=== PATIENT | female | born 1965 | race African-American/Black ===

== ENCOUNTER 2016-10-28 10:10 | Outpatient (CLI) | payer OTHER ==
--- NOTE | 2016-10-29 12:05 | Diagnostic Imaging Report ---
Indications: Chronic left shoulder pain Technique: Sagittal oblique T1 weighted fast spin echo, sagittal oblique and coronal oblique T2 weighted fat saturated fast spin echo, sagittal oblique, coronal oblique and axial proton density weighted fat saturated fast spin echo sequences of the left shoulder were performed without intravenous or intra-articular gadolinium administration. Findings: Comparison: 09/25/2010 Supraspinatus and infraspinatus tendons remain diffusely thickened and heterogeneously increased in signal. Again, no discrete linear fluid signal change identified to suggest high-grade tear. No tendon retraction or muscular atrophy. No significant fluid in subacromial/subdeltoid bursa. Teres minor, subscapularis muscles and tendons are intact and unremarkable in appearance. Acromioclavicular joint remains unremarkable in appearance. Acromion process demonstrates neutral angulation and type I configuration. Subacromial space remains normal in width. Glenohumeral joint remains intact without significant effusion. Glenoid labrum remains grossly intact. Biceps tendon remains normally located within the bicipital groove, intact and normal in signal to its glenoid insertion site. Multiple circumscribed fluid signal foci have developed within the superior lateral aspect of the humeral head and region of previous marrow edema. IMPRESSION: Findings compatible with a persistent supraspinatus and infraspinatus tendinopathy. Superimposed low-grade tear not excludable. No evidence of high-grade tear, unchanged. Formation of multiple humeral head cysts in region of previous marrow edema, there likely degenerative in nature. Remainder of exam unremarkable, unchanged
== END 2016-10-28 12:10 | disposition home or self-care (01) ==
LOC: MRI 10:10
DX: M75.92 Shoulder lesion, unspecified, left shoulder (principal)

== ENCOUNTER 2016-11-05 18:20 | Emergency (ER) | payer BC, OTHER ==
[~2016-11-05] VITALS: Ht 165.1 cm; Wt 116.1 kg
--- NOTE | 2016-11-05 18:45 | Emergency Room Report ---
History of Present Illness General Chief Complaint: Pain Present Illness HPI 51-year-old female presents to the emergency department complaining of right posterior calf pain, left medial knee pain, right forearm pain x2 months. Patient states that the right calf pain has been exacerbated over the last 3 days. Patient denies appreciable trauma or fall. Patient denies swelling, erythema or open lesions. Patient states that for arm pain began after holding wheelchair from rolling downhill 2 months ago. Patient states she has a history of DVT in the past, and has IVC filter in place. Pt. also reports hx of PE in 2009 Patient denies taking blood thinning medications, recent travel, hormone replacement. She states she has taken Motrin multiple times without relief. She states that finis appointment she could get with her PCP was in a month. Pt. reports hx of Left knee replacement in 2014. Pt. is right hand dominant. Denies nausea, vomiting, fevers, chills. Denies Cough or SOB. Denies numbness tingling or loss of sensation or gross motor movements of the extremities, incontinence of bowel or bladder. Denies CP, Palpitations, LOC, AMS , dizziness, Changes in Vision, Sensation, paresthesias, or a sudden severe headache. Allergies: Coded Allergies: SULFUR DIOXIDE (Verified Allergy, Unknown, MAKE ME ITCH, 10/18/14) Patient History Past Medical History: see triage record Past Surgical History: none Pertinent Family History: none Now: No Reviewed Nursing Documentation: PMH: Agreed, PSxH: Agreed Nursing Documentation-PMH Hx Cardiac Problems: No - DVTS PE Review of Systems All Other Systems: negative except mentioned in HPI Physical Exam Vital Signs Date Time Temp Pulse Resp B/P (MAP) Pulse Ox O2 Delivery O2 Flow Rate FiO2 11/05/16 18:28 99.0 86 16 122/62 97 Room Air Sp02 EP Interpretation: reviewed, normal General Appearance: no apparent distress, alert, GCS 15, non-toxic Head: normocephalic, atraumatic Eyes: bilateral eye normal inspection, bilateral eye PERRL ENT: hearing grossly normal, normal voice Neck: full range of motion Respiratory: lungs clear, normal breath sounds, speaking full sentences Cardiovascular #1: regular rate, rhythm Cardiovascular #2: 2+ radial (R), 2+ radial (L), 2+ dorsalis pedis (R), 2+ dorsalis pedis (L) Musculoskeletal: back normal, gait/station normal, normal range of motion, tender - TTP to the right brachioradialis muscle, pt. is NVI to the extremity, no swelling, no erythema, no weakness. TTP to the posterior right calf. no erythema, no swelling, no increased temperature to palpation, good pulses to posterior tibialis ( Bilat.) , and dorsalis pedis ( bilat.), good capillary refill (bilat), no varicose veins, no evidence of PAD. no edema, normal temperature no pulsatile mass to posteior right knee. TTP to the medical left knee, there is a surgical scar. no erythema, no swelling, no increased temperature to palpation, FROM, no posterior pulsatile mass. Neurologic: alert, oriented x3, responsive, motor strength/tone normal, sensory intact, speech normal Psychiatric: judgement/insight normal, memory normal, mood/affect normal Skin: normal color, no rash, warm/dry, well hydrated Lymphatic: no adenopathy Medical Decision Making PA Attestation Dr. Caceres is my supervising Physician whom patient management has been discussed with. Diagnostic Impression: Primary Impression: Right calf pain Additional Impressions: Brachioradialis muscle tenderness Left knee pain Qualified Codes: M25.562 - Pain in left knee ER Course 51-year-old female presents to the emergency department complaining of right posterior calf pain, left medial knee pain, right forearm pain x2 months. Patient states that the right calf pain has been exacerbated over the last 3 days. Patient denies appreciable trauma or fall. Patient denies swelling, erythema or open lesions. Patient states that for arm pain began after holding wheelchair from rolling downhill 2 months ago. Patient states she has a history of DVT in the past, and has IVC filter in place. Pt. also reports hx of PE in 2009 Patient denies taking blood thinning medications, recent travel, hormone replacement. She states she has taken Motrin multiple times without relief. She states that finis appointment she could get with her PCP was in a month. Pt. reports hx of Left knee replacement in 2014. Pt. is right hand dominant. Denies nausea, vomiting, fevers, chills. Denies Cough or SOB. Denies numbness tingling or loss of sensation or gross motor movements of the extremities, incontinence of bowel or bladder. Denies CP, Palpitations, LOC, AMS , dizziness, Changes in Vision, Sensation, paresthesias, or a sudden severe headache. Ddx considered but are not limited to Cellulitis, DVT, varicose vein, PAD, Venous insufficiency Vital signs: are WNL, pt. is afebrile H&PE are most consistent with possible Right LE DVT, and brachioradialis tendonitis. No erythma or increased HERMES to suggest DVT. but due to posterior calf pain ( positive eloise's sign) and hx of DVT and PE will do doppler US instead of D-Dimer. ( other bhardwaj pt. has low Wells criteria) ORDERS: CMP, CBC with Diff, PT/PTT: unremarkable, see results attached/ WNL LE duplex U/s : Negative for DVT , patent deep venous system. . ED INTERVENTIONS: None required at this time. d/w pt. the results of her lab work, and US. with current presentation I do not suspect an emergent condition at this time. there is no threat to acute loss of limb, and pt. has and IVC filter. I believe this pt. is stable for close outpatient follow up. the Pt. is instructed to return promptly to the ED with worsening or new symptoms. DISCHARGE: At this time pt. is stable for d/c to home. Will provide printed patient care instructions, and any necessary prescriptions. Care plan and follow up instructions have been discussed with the patient prior to discharge. Labs Test 11/05/16 19:38 White Blood Count 6.2 K/UL (4.8-10.8) Red Blood Count 4.06 M/UL (4.20-5.40) Hemoglobin 13.3 G/DL (12.0-16.0) Hematocrit 37.9 % (37.0-47.0) Mean Corpuscular Volume 93 FL (80-99) Mean Corpuscular Hemoglobin 32.7 PG (27.0-31.0) Mean Corpuscular Hemoglobin Concent 35.0 G/DL (32.0-36.0) Red Cell Distribution Width 12.4 % (11.6-14.8) Platelet Count 281 K/UL (150-450) Mean Platelet Volume 6.1 FL (6.5-10.1) Neutrophils (%) (Auto) 56.0 % (45.0-75.0) Lymphocytes (%) (Auto) 32.7 % (20.0-45.0) Monocytes (%) (Auto) 8.6 % (1.0-10.0) Eosinophils (%) (Auto) 1.6 % (0.0-3.0) Basophils (%) (Auto) 1.1 % (0.0-2.0) Prothrombin Time 11.3 SEC (9.30-11.50) Prothromb Time International Ratio 1.1 (0.9-1.1) Activated Partial Thromboplast Time 26 SEC (23-33) Sodium Level 140 mEQ/L (135-145) Potassium Level 3.9 mEQ/L (3.4-4.9) Chloride Level 102 mEQ/L (98-107) Carbon Dioxide Level 26 mEQ/L (20-30) Anion Gap 12 (5-15) Blood Urea Nitrogen 11 mg/dL (7-23) Creatinine 0.9 mg/dL (0.5-0.9) Estimat Glomerular Filtration Rate > 60 mL/min (>60) Glucose Level 100 mg/dL (74-106) Calcium Level 8.9 mg/dL (8.6-10.2) Total Bilirubin 0.3 mg/dL (0.0-1.2) Aspartate Amino Transf (AST/SGOT) 17 U/L (5-40) Alanine Aminotransferase (ALT/SGPT) 9 U/L (3-33) Alkaline Phosphatase 71 U/L (35-104) Total Protein 7.5 g/dL (6.6-8.7) Albumin 4.3 g/dL (3.5-5.2) Globulin 3.2 g/dL Albumin/Globulin Ratio 1.3 (1.0-2.7) Last Vital Signs Date Time Temp Pulse Resp B/P (MAP) Pulse Ox O2 Delivery O2 Flow Rate FiO2 11/05/16 18:28 99.0 86 16 122/62 97 Room Air Disposition: HOME, SELF-CARE Condition: Stable Scripts Acetaminophen With Codeine (T#3) (TYLENOL #3 TAB*) Y Tab 1 TAB ORAL Q6HR Y for For Pain, #6 TAB Prov: Chiquita White P.A. 11/05/16 Naproxen* (NAPROSYN*) 500 Mg Tablet 500 MG ORAL TWICE A DAY for 7 Days, #14 TAB Prov: Chiquita White P.A. 11/05/16 Patient Instructions: PAIN, Uncertain Cause (Acute) Additional Instructions: Take medications as directed. Follow up with a Primary Care Provider in 3-5 days, even if your symptoms have resolved. --Please review list of primary care clinics, if you do not already have a primary care provider Return sooner to ED if new symptoms occur, or current symptoms become worse. - Please note that this Emergency Department Report was dictated using [employer] Systems[employer] manager technology software, occasionally this can lead to erroneous entry secondary to interpretation by the dictation equipment. Chiquita White Nov 05, 2016 18:45
[2016-11-05 19:57] LABS: BASOPHILS % (AUTO) 1.1 % (0.0-2.0); EOSINOPHILS % (AUTO) 1.6 % (0.0-3.0); LYMPHOCYTES % (AUTO) 32.7 % (20.0-45.0); MEAN CORPUSCULAR HEMOGLOBIN 32.7 PG (27.0-31.0); MEAN CORPUSCULAR VOLUME 93 FL (80-99); MEAN PLATELET VOLUME 6.1 FL (6.5-10.1); MONOCYTES % (AUTO) 8.6 % (1.0-10.0); PLATELET COUNT 281 K/UL (150-450); RED BLOOD COUNT 4.06 M/UL (4.20-5.40); RED CELL DISTRIBUTION WIDTH 12.4 % (11.6-14.8); WHITE BLOOD COUNT 6.2 K/UL (4.8-10.8)
[2016-11-05] MEDS ORDERED: Tylenol #3 tab (300mg/30mg) ORAL ONE (20:00)
[2016-11-05 20:07] LABS: INR 1.1 (0.9-1.1); PROTHROMBIN TIME 11.3 SEC (9.30-11.50)
[2016-11-05 20:15] VITALS: BP 122/62
[2016-11-05 20:23] LABS: ALANINE AMINOTRANSFERASE 9 U/L (3-33); ALBUMIN/GLOBULIN RATIO 1.3 (1.0-2.7); ANION GAP 12 (5-15); ASPARTATE AMINO TRANSFERASE 17 U/L (5-40); CALCIUM 8.9 mg/dL (8.6-10.2); CARBON DIOXIDE 26 mEQ/L (20-30); CHLORIDE 102 mEQ/L (98-107); CREATININE 0.9 mg/dL (0.5-0.9); GLOMERULAR FILTRATION RATE > 60 mL/min (>60); HEMOLYSIS 4; POTASSIUM 3.9 mEQ/L (3.4-4.9); SODIUM 140 mEQ/L (135-145); TOTAL PROTEIN 7.5 g/dL (6.6-8.7)
[2016-11-05] MEDS ORDERED: NAPROSYN500 M1 ORAL (20:46)
[2016-11-05] MEDS ORDERED: ACETAMINOPHEN-1 EAC1 ORAL (20:46)
[2016-11-05 20:55] VITALS: BP 122/62
--- NOTE | 2016-11-09 11:19 | Diagnostic Imaging Report ---
APPROVED REPORT CPT Code: 91687 Present Symptoms Lower Extremity Pain: Right Comments: Hx left distal superficial femoral vein DVT, pulmonary embolism 2009. IVC filter placed via CFV. Hx left knee replacement 2014. Hx bilateral chronic calf DVT. Past History DVT : Pulmonary Embolism RIGHT LEG: Venous imaging reveals a patent deep venous system. There is no evidence of thrombus within the femoral, popliteal or tibial segments. The greater saphenous vein is also within normal limits. Doppler indicates normal spontaneous flow within these segments. 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
== END 2016-11-05 20:56 | disposition home or self-care (01) ==
LOC: EMR 19:22
DX: M79.661 Pain in right lower leg (principal); M25.562 Pain in left knee; M79.631 Pain in right forearm; Z86.718 Personal history of other venous thrombosis and embolism; Z86.711 Personal history of pulmonary embolism; Z96.652 Presence of left artificial knee joint; Z88.8 Allergy status to other drugs, medicaments and biological substances; I77.0 Arteriovenous fistula, acquired
CPT/HCPCS: 36415; 80053; 85025; 85610; 85730; 93971; 99284

== ENCOUNTER 2017-01-18 09:28 | Outpatient (CLI) | payer BC, OTHER ==
[~2017-01-18 09:28] MED LIST: ACETAMINOPHEN-1 EAC1 ORAL; NAPROSYN500 M1 ORAL
--- NOTE | 2017-01-19 14:00 | Diagnostic Imaging Report ---
Indication: Left shoulder pain. Abnormal MRI . Comparison: None Findings and procedure: Informed consent for the procedure was obtained. The risks, benefits, and alternatives to the procedure were discussed with the responsible libertarian. We were given verbal and written consent to proceed. With the patient supine on the fluoroscopic table, with the shoulder in slight external rotation, the left shoulder was prepped and sterilely draped in the usual fashion. 1% lidocaine was administered for local anesthesia. 22-gauge spinal needle was then used to obtain access into the glenohumeral joint space. A solution of water-soluble contrast and dilute gadolinium was then instilled into the joint space under direct fluoroscopic observation. Images of the left shoulder were then obtained in multiple projections. MRI of left shoulder was then obtained following the procedure. Contrast noted within the joint space. There were no complications. Patient tolerated the procedure well. Findings: Please refer to the MRI report. Impression: Successful left shoulder arthrogram. Please refer to the MRI report
--- NOTE | 2017-01-19 14:00 | Diagnostic Imaging Report ---
Indication: Left shoulder pain. Abnormal MRI . Comparison: None Findings and procedure: Informed consent for the procedure was obtained. The risks, benefits, and alternatives to the procedure were discussed with the responsible constitution party. We were given verbal and written consent to proceed. With the patient supine on the fluoroscopic table, with the shoulder in slight external rotation, the left shoulder was prepped and sterilely draped in the usual fashion. 1% lidocaine was administered for local anesthesia. 22-gauge spinal needle was then used to obtain access into the glenohumeral joint space. A solution of water-soluble contrast and dilute gadolinium was then instilled into the joint space under direct fluoroscopic observation. Images of the left shoulder were then obtained in multiple projections. MRI of left shoulder was then obtained following the procedure. Contrast noted within the joint space. There were no complications. Patient tolerated the procedure well. Findings: Please refer to the MRI report. Impression: Successful left shoulder arthrogram. Please refer to the MRI report
--- NOTE | 2017-01-19 14:00 | Diagnostic Imaging Report ---
Indication: Left shoulder pain. Abnormal MRI . Comparison: None Findings and procedure: Informed consent for the procedure was obtained. The risks, benefits, and alternatives to the procedure were discussed with the responsible alliance party. We were given verbal and written consent to proceed. With the patient supine on the fluoroscopic table, with the shoulder in slight external rotation, the left shoulder was prepped and sterilely draped in the usual fashion. 1% lidocaine was administered for local anesthesia. 22-gauge spinal needle was then used to obtain access into the glenohumeral joint space. A solution of water-soluble contrast and dilute gadolinium was then instilled into the joint space under direct fluoroscopic observation. Images of the left shoulder were then obtained in multiple projections. MRI of left shoulder was then obtained following the procedure. Contrast noted within the joint space. There were no complications. Patient tolerated the procedure well. Findings: Please refer to the MRI report. Impression: Successful left shoulder arthrogram. Please refer to the MRI report
--- NOTE | 2017-01-19 15:40 | Diagnostic Imaging Report ---
Indication: Shoulder pain. Left shoulder arthrogram performed Technique: MRI of the left shoulder obtained in a 1.5 Migdalia magnet. Pulse sequences obtained include axial and coronal proton fast spin-echo with fat saturation, sagittal T1 fast spin-echo, sagittal and coronal T2 fast spin-echo with fat saturation. T1 fast spin-echo with fat saturation obtained in all 3 planes. Findings: There is intra-articular gadolinium demonstrated. There is gadolinium extension into the footprint of the distal supraspinatus tendon indicative of a large articular surface tear. There is a intrasubstance interstitial extension of gadolinium into much of the distal supraspinatus fibers as well as the anterior portion of the infraspinatus tendon fibers. Trace amount of gadolinium is noted in the subacromial bursa indicating a full-thickness component. Corresponding T2 and proton-weighted images show increased thickness and heterogeneous T2 signal within the supraspinatus tendon indicative of tendinopathy. There is no retraction of the supraspinatus or infraspinatus tendon fibers. Teres minor and subscapularis tendons appear normal. A multiple cystic changes noted in the greater tuberosity, likely degenerative in nature. Bone marrow signal is otherwise normal. The long head of the biceps tendon is normal in appearance. The biceps anchor is unremarkable. There is somewhat of a prominence of labral recess but the glenoid labrum is intact without evidence of a labral tear. Osteoarthrosis noted involving the acromioclavicular joint which is irregular and hypertrophic in appearance. Impression: Moderate tendinopathy of the supraspinatus and anterior infraspinatus tendons with large articular surface tear of the supraspinatus tendon and likely involvement of the anterior fibers of infraspinatus tendon. Although much of the tear is of the articular surface, there is a suspected full-thickness component given gadolinium contrast is seen within the subacromial bursa, although the precise full-thickness defect is not specifically visualized. Unremarkable glenoid labrum. Osteoarthrosis of the acromioclavicular joint
== END 2017-01-18 11:28 | disposition home or self-care (01) ==
LOC: MRI 09:28
DX: M75.92 Shoulder lesion, unspecified, left shoulder (principal); M19.012 Primary osteoarthritis, left shoulder
CPT/HCPCS: 73040; 73223; A9579

== ENCOUNTER 2017-03-13 10:56 | Emergency (ER) | payer BC, OTHER ==
[~2017-03-13] VITALS: Ht 165.1 cm; Wt 113.9 kg
[2017-03-13 11:30] VITALS: BP_SYST 124; BP_SYST 132; BP_DIAS 81
[2017-03-13] MEDS ORDERED: NEURONTIN400 MG ORAL (11:40)
[2017-03-13 11:50] VITALS: BP 143/81
--- NOTE | 2017-03-18 20:05 | Emergency Room Report ---
History of Present Illness General Chief Complaint: Upper Extremity Injury Source: Patient, Medical Record Present Illness HPI Patient is a 51-year-old female who presented after increased left upper extremity pain. The patient was having pain to her left upper extremity which was described as a numbness sensation. She stated she prior history of neck pain. She reported having previously had chronic pain which she was in pain management. She states is had worsened over the past few days. Pain was worse with movement. She denies any recent trauma. She denies having any change pain with exertion. The pain was worsened with neck movements. She denies any fever. She denies any headache or nausea or vomiting. She denies chest pain Allergies: Coded Allergies: SULFUR DIOXIDE (Verified Allergy, Unknown, MAKE ME ITCH, 10/18/14) Patient History Past Medical History: see triage record Last Menstrual Period: partial hysterectomy done August 27, 2015 Reviewed Nursing Documentation: PMH: Agreed, PSxH: Agreed Nursing Documentation-PMH Past Medical History: No History, Except For Hx Cardiac Problems: No - DVTS PE Review of Systems All Other Systems: negative except mentioned in HPI Physical Exam Vital Signs Date Time Temp Pulse Resp B/P (MAP) Pulse Ox O2 Delivery O2 Flow Rate FiO2 03/13/17 10:59 97.7 82 18 143/81 99 Room Air General Appearance: well appearing, no apparent distress, obese, Chronically Ill Head: normocephalic, atraumatic ENT: hearing grossly normal, normal voice Neck: supple, limited range of motion, other - increased pain with left rotation of neck, left anterior neck muscle spasm, mild increased pain with axial loading Respiratory: no respiratory distress, speaking full sentences Cardiovascular #1: normal peripheral pulses, regular rate, rhythm, no edema Gastrointestinal: normal bowel sounds, non tender Musculoskeletal: no calf tenderness Neurologic: normal inspection, alert, oriented x3, responsive, overlock elastic attacher III-XII nml as tested, motor strength/tone normal, DTRs symmetric, normal gait, other - jackson reflex normal, oriented Psychiatric: mood/affect normal Skin: no rash Lymphatic: normal inspection Medical Decision Making Diagnostic Impression: Primary Impression: Neuropathy ER Course Patient presented for left upper extremity pain. Differential diagnosis included but was not limited to fracture, contusion, renal stone, vascular insufficiency, aortic aneurysm, cellulitis. Patient's benign exam and does not appear to require any further imaging or laboratory testing at this time. The patient's pain appears to be chronic in nature. This appears to be related to prior history of chronic pain and neuropathy. The patient will require further outpatient imaging however there does not appear to be any acute need for emergency imaging at this time. Patient was advised followup with primary care physician for MRI and neurology evaluation. Patient was given prescription for Neurontin.The patient is advised to follow up with primary care doctor in 1-2 days. Patient is advised to return if any worsening condition or if any changes in status that are concerning. This report is dictated with [employer] diesel instructor software which may occasionally lead to discrepancies related to use of this software. Last Vital Signs Date Time Temp Pulse Resp B/P (MAP) Pulse Ox O2 Delivery O2 Flow Rate FiO2 03/13/17 11:50 97.7 87 18 143/81 99 Room Air Status: improved Disposition: HOME, SELF-CARE Condition: Stable Scripts Gabapentin* (NEURONTIN*) 400 Mg Capsule 400 MG ORAL THREE TIMES A DAY, #15 CAP 0 Refills Prov: Jw Luna 03/13/17 Referrals: NON PHYSICIAN (PCP) Patient Instructions: Neuropathic Pain Jw Luna Mar 18, 2017 20:05
== END 2017-03-13 11:50 | disposition home or self-care (01) ==
LOC: EMR 11:46
DX: M25.532 Pain in left wrist (principal); G62.9 Polyneuropathy, unspecified
CPT/HCPCS: 99283

== ENCOUNTER 2018-06-24 17:10 | Emergency (ER) | payer OTHER, BC ==
[~2018-06-24] VITALS: Ht 165.1 cm; Wt 117.9 kg
[~2018-06-24 17:10] MED LIST changes: +NEURONTIN400 MG ORAL
--- NOTE | 2018-06-24 17:35 | Emergency Room Report ---
History of Present Illness General Chief Complaint: Chest Pain Source: Patient Present Illness HPI Patient is a 53-year-old female presented after increased left-sided chest discomfort. She reports having this intermittent in nature. She reports having multiple episodes of this associated with increased cough. Patient reports having pain to the center of the left side of her chest. She states this is reproducible with palpation. This is unchanged by movement. Allergies: Coded Allergies: SULFUR DIOXIDE (Verified Allergy, Unknown, MAKE ME ITCH, 10/18/14) Patient History Past Medical History: see triage record Last Menstrual Period: partial hystrectomy Reviewed Nursing Documentation: PMH: Agreed; PSxH: Agreed Nursing Documentation-PMH Past Medical History: No Stated History Hx Hypertension: No Hx Pacemaker: No Hx Asthma: No Hx COPD: No Hx Diabetes: No Hx Cancer: No Hx Gastrointestinal Problems: No Hx Dialysis: No History Of Psychiatric Problem: No Hx Neurological Problems: No Hx Cerebrovascular Accident: No Hx Seizures: No Review of Systems All Other Systems: negative except mentioned in HPI Physical Exam Vital Signs Date Time Temp Pulse Resp B/P (MAP) Pulse Ox O2 Delivery O2 Flow Rate FiO2 06/24/18 17:20 98.2 93 16 150/93 97 Room Air Sp02 EP Interpretation: reviewed, normal General Appearance: normal inspection, well appearing, no apparent distress, alert, GCS 15, obese Head: atraumatic ENT: normal ENT inspection, hearing grossly normal, normal voice Neck: normal inspection, full range of motion, supple, no bony tend Respiratory: normal inspection, lungs clear, normal breath sounds, no respiratory distress, no retraction, no wheezing, other - left chest wall tenderness Cardiovascular #1: regular rate, rhythm, no edema Gastrointestinal: normal inspection, normal bowel sounds, non tender, soft, no guarding, no hernia Genitourinary: no CVA tenderness Musculoskeletal: normal inspection, back normal, normal range of motion Neurologic: normal inspection, alert, oriented x3, responsive, 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 Differential diagnosis include was not limited to chest wall pain, bronchitis, pneumonia, aortic dissection, pulmonary embolism among others. Patient was noted to have prior history of pulmonary embolism. Patient was noted to have pain which is noted to be pleuritic in nature. CT the chest was ordered. CT the chest read by radiology showed no evidence of acute pulmonary embolism however there were nodules noted to the thyroid as well as to the right lung. Patient was advised of CT findings and was told to follow-up with her primary care physician for further workup. Patient was advised to return if any worsening condition or increased shortness of breath dizziness or other concerns Labs Test 06/24/18 17:45 White Blood Count 8.0 K/UL (4.8-10.8) Red Blood Count 4.70 M/UL (4.20-5.40) Hemoglobin 13.6 G/DL (12.0-16.0) Hematocrit 41.2 % (37.0-47.0) Mean Corpuscular Volume 88 FL (80-99) Mean Corpuscular Hemoglobin 29.0 PG (27.0-31.0) Mean Corpuscular Hemoglobin Concent 33.1 G/DL (32.0-36.0) Red Cell Distribution Width 12.4 % (11.6-14.8) Platelet Count 314 K/UL (150-450) Mean Platelet Volume 5.4 FL (6.5-10.1) Neutrophils (%) (Auto) 63.9 % (45.0-75.0) Lymphocytes (%) (Auto) 26.3 % (20.0-45.0) Monocytes (%) (Auto) 6.6 % (1.0-10.0) Eosinophils (%) (Auto) 1.8 % (0.0-3.0) Basophils (%) (Auto) 1.4 % (0.0-2.0) D-Dimer 0.36 mg/L FEU (0.00-0.49) Sodium Level 138 MMOL/L (136-145) Potassium Level 3.6 MMOL/L (3.5-5.1) Chloride Level 102 MMOL/L (98-107) Carbon Dioxide Level 27 MMOL/L (21-32) Anion Gap 9 mmol/L (5-15) Blood Urea Nitrogen 11 mg/dL (7-18) Creatinine 0.9 MG/DL (0.55-1.30) Estimat Glomerular Filtration Rate > 60 mL/min (>60) Glucose Level 95 MG/DL (74-106) Calcium Level 9.0 MG/DL (8.5-10.1) Total Bilirubin 0.2 MG/DL (0.2-1.0) Aspartate Amino Transf (AST/SGOT) 13 U/L (15-37) Alanine Aminotransferase (ALT/SGPT) 19 U/L (12-78) Alkaline Phosphatase 115 U/L (46-116) Total Creatine Kinase 69 U/L (26-308) Creatine Kinase MB 0.9 NG/ML (0.0-3.6) Creatine Kinase MB Relative Index 1.3 Troponin I 0.004 ng/mL (0.000-0.056) Pro-B-Type Natriuretic Peptide 8 pg/mL (0-125) Total Protein 8.0 G/DL (6.4-8.2) Albumin 3.5 G/DL (3.4-5.0) Globulin 4.5 g/dL Albumin/Globulin Ratio 0.8 (1.0-2.7) Lipase 115 U/L (73-393) Urine Opiates Screen Negative (NEGATIVE) Urine Barbiturates Screen Negative (NEGATIVE) Phencyclidine (PCP) Screen Negative (NEGATIVE) Urine Amphetamines Screen Negative (NEGATIVE) Urine Benzodiazepines Screen Negative (NEGATIVE) Urine Cocaine Screen Negative (NEGATIVE) Urine Marijuana (THC) Screen Negative (NEGATIVE) EKG Diagnostic Results Rate: normal - 99 Rhythm: NSR ST Segments: no acute changes Last Vital Signs Date Time Temp Pulse Resp B/P (MAP) Pulse Ox O2 Delivery O2 Flow Rate FiO2 06/24/18 17:20 98.2 93 16 150/93 97 Room Air Status: improved Disposition: HOME, SELF-CARE Condition: Stable Scripts Ibuprofen* (MOTRIN*) 600 Mg Tablet 600 MG ORAL Q8H PRN for For Pain, #30 TAB 0 Refills Prov: Jw Luna MD 06/24/18 Jw Luna MD Jun 24, 2018 17:35
[2018-06-24 17:40] VITALS: BP 150/93
--- NOTE | 2018-06-24 17:40 | NUR ---
ED Nurse Note: c/o pressure chest pain x 1 hr; patient was driving; report no N/V or diaphoresis. pt is complaining of 7/10 sharp stabbing pain and tightness on the left side, seen by aubree on bedside. ekg done. pt abloe to give urine sample. blood drawn and sent to lab. will continue to monitor.
[2018-06-24] MEDS ORDERED: Isovue-370 150ml vial INJ PRN (17:45)
--- NOTE | 2018-06-24 17:55 | NUR ---
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
[2018-06-24 18:08] LABS: BASOPHILS % (AUTO) 1.4 % (0.0-2.0); EOSINOPHILS % (AUTO) 1.8 % (0.0-3.0); HEMATOCRIT 41.2 % (37.0-47.0); HEMOGLOBIN 13.6 G/DL (12.0-16.0); LYMPHOCYTES % (AUTO) 26.3 % (20.0-45.0); MEAN CORPUSCULAR VOLUME 88 FL (80-99); MONOCYTES % (AUTO) 6.6 % (1.0-10.0); NEUTROPHILS % (AUTO) 63.9 % (45.0-75.0); PLATELET COUNT 314 K/UL (150-450); RED CELL DISTRIBUTION WIDTH 12.4 % (11.6-14.8)
[2018-06-24 18:19] LABS: ANION GAP 9 mmol/L (5-15); BLOOD UREA NITROGEN 11 mg/dL (7-18); CARBON DIOXIDE 27 MMOL/L (21-32); CHLORIDE 102 MMOL/L (98-107); CREATININE 0.9 MG/DL (0.55-1.30); POTASSIUM 3.6 MMOL/L (3.5-5.1); SODIUM 138 MMOL/L (136-145)
--- NOTE | 2018-06-24 18:21 | Diagnostic Imaging Report ---
EXAM: XR Chest, 1 View CLINICAL HISTORY: Chest pain TECHNIQUE: Frontal view of the chest. COMPARISON: No relevant prior studies available. FINDINGS: Lungs: Unremarkable. No consolidation. Pleural space: Unremarkable. No pneumothorax. Heart: Unremarkable. No cardiomegaly. Mediastinum: Unremarkable. Bones/joints: No acute osseous abnormality. IMPRESSION: No acute cardiopulmonary process.
--- NOTE | 2018-06-24 18:25 | NUR ---
ED Nurse Note: pt went to ct with tech.
[2018-06-24 18:34] LABS: ALANINE AMINOTRANSFERASE 19 U/L (12-78); ALBUMIN 3.5 G/DL (3.4-5.0); ALBUMIN/GLOBULIN RATIO 0.8 (1.0-2.7); ALKALINE PHOSPHATASE 115 U/L (46-116); ASPARTATE AMINO TRANSFERASE 13 U/L (15-37); BILIRUBIN,TOTAL 0.2 MG/DL (0.2-1.0); CKMB 0.9 NG/ML (0.0-3.6); CREATINE KINASE 69 U/L (26-308)
--- NOTE | 2018-06-24 19:45 | Diagnostic Imaging Report ---
EXAM: CT Angiography Chest With Intravenous Contrast CLINICAL HISTORY: Chest pain TECHNIQUE: Axial computed tomographic angiography images of the chest with intravenous contrast using pulmonary embolism protocol. CTDI is 0.17, 12. 62, 12.62, 12.62, 40.23 mGy and DLP is 1412 mGy-cm. One or more of the following dose reduction techniques were used: automated exposure control, adjustment of the mA and/or kV according to patient size, use of iterative reconstruction technique. 3D and MIP reconstructed images were created and reviewed. COMPARISON: No relevant prior studies available. FINDINGS: Pulmonary arteries: No pulmonary embolus. Aorta: No acute findings. No thoracic aortic aneurysm. Lungs: Indeterminate subcentimeter pleural-based right middle lobe pulmonary nodules measuring up to 3 mm. Mild bilateral dependent densities are favored to represent atelectasis. No consolidation or mass. Pleural space: Unremarkable. No significant effusion. No pneumothorax. Heart: Unremarkable. No cardiomegaly. No significant pericardial effusion. Thyroid: Indeterminate thyroid nodules measuring up to 2 cm. Bones/joints: No acute fracture. Soft tissues: Unremarkable. Lymph nodes: Unremarkable. No enlarged lymph nodes. IMPRESSION: 1. No pulmonary embolus. 2. Indeterminate subcentimeter pleural-based right middle lobe pulmonary nodules measuring up to 3 mm. For low-risk patients, no follow-up is necessary. For high-risk patients (smoking history or other known risk factors) an optional chest CT at 12 months could be performed. 3. Indeterminate thyroid nodules measuring up to 2 cm. Nonemergent thyroid ultrasound may be considered for further characterization, as clinically indicated.
[2018-06-24] MEDS ORDERED: IBUPROFEN600 MG ORAL (19:56)
--- NOTE | 2018-06-24 20:05 | NUR ---
ER DISCHARGE NOTE: Patient is cleared to be discharged per ERMD, pt is aox4, on room air, with stable vital signs. pt was given dc and prescription instructions, pt was able to verbalize understanding, pt id band and iv site removed without complications. pt is able to ambulate with steady gait. pt took all belongings.
[2018-06-24 20:07] VITALS: BP 147/89
== END 2018-06-24 20:07 | disposition home or self-care (01) ==
LOC: EMR 17:50
DX: R07.89 Other chest pain (principal); R91.1 Solitary pulmonary nodule; E04.1 Nontoxic single thyroid nodule
CPT/HCPCS: 36415; 71045; 71275; 80053; 80307; 82550; 82553; 83690; 83880; 84484; 85025; 85379; 93005; 99284; Q9967